=== PATIENT | male | born 1960 | race Caucasian/White ===

== ENCOUNTER 2016-06-26 06:30 | Day surgery (SDC) | payer OTHER ==
--- NOTE | 2016-06-25 11:41 | HP ---
DATE OF CLINIC: 06/11/2016 GRAHAM BENNETT : 1960 PLANNED PROCEDURE: Right Shoulder Arthroscopic Biceps Tenodesis DATE OF SURGERY: June 26, 2016 SURGEON: Toni Barnett M.D. HISTORY OF PRESENT ILLNESS Graham Bennett is a 55 year old male. * Medication list reviewed with patient allergy list reviewed with patient. 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 He had a pop in his right shoulder and had immediate pain. He worked a couple of more days trying to just shake it off and eventually went to [facility] where he was diagnosed with a shoulder strain and sent to [facility] follow up with Jessika Reyez. He has been treated with Flexeril, ibuprofen and some hydrocodone and was sent for an MRI because of concern given a remote history of a previous dislocation of the right shoulder or a subluxation maybe of the right shoulder. He got the MRI based on those results and his ongoing pain was referred here for evaluation. He has not been working since his injury. After discussion and review of treatment options, both operative and non-operative, he has elected to proceed with surgery and presents today preoperatively. PAST MEDICAL AND SURGICAL HISTORY: His past medical history is significant for a hernia surgery in 2002 otherwise negative. He works as a oil painter. He is a non-smoker. He does not have any other complaints at this point. CURRENT MEDICATION * Cyclobenzaprine HCl 10 MG Tablet three times a day 1 tab TID PRN-back spasm Side effects may cause drowsiness do not operate equipment or drive, 5 days, 0 refills * Ibuprofen 800 MG Tablet three times a day, 30 days, 0 refills PAST MEDICAL/SURGICAL HISTORY Reported: No recent change in medical history. Surgical / Procedural: Hernia repair. Medications: Taking OTC pain medication and medication which seems to be helping. SOCIAL HISTORY Social history unchanged. Behavioral: Tobacco use occasionally and non-smoker quit smoking. Smoking status: Former smoker. Alcohol: Alcohol occasionally. 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 ALLERGIES * No Known Allergies FAMILY HISTORY Family history unchanged REVIEW OF SYSTEMS No recent constitutional symptoms to include fevers and chills. No recent cardiovascular symptoms to include chest pain or palpitations. No recent respiratory symptoms to include shortness of breath or recent infections. PHYSICAL FINDINGS * Vitals taken 06/11/2016 09:33 am BP-Sitting R 135/83 mmHg BP Cuff Size Regular Pulse Rate-Sitting 86 bpm Pulse Rhythm Regular Temp-Oral 97.9 F Height 70 in Weight 187 lbs Body Mass Index 26.8 kg/m2 Body Surface Area 2.03 m2 Pain Level 5 Ears, Nose, Throat: * ENT: normal. Lungs: * Clear to auscultation. Cardiovascular: Heart Rate and Rhythm: * Normal. Abdomen: * Normal. Neurological: Motor: * Dominant Hand = Right Hand. Patient is a well-developed, well-nourished male in no acute distress. They are awake, alert and conversant throughout the encounter. CARDIOVASCULAR: Intact peripheral pulses on bilateral upper extremities. No significant edema on inspection of bilateral upper extremities. NEUROLOGIC: Patient had intact coordinated composite motion of the bilateral upper extremities and sensation intact to light touch in all distributions of bilateral upper extremities. PSYCHIATRIC: Patient was oriented to person, place and time and displayed appropriate mood and affect during the encounter. SKIN: Exam of the skin on bilateral upper extremities showed no significant scars, lesions, rashes or masses. FOCUSED MUSCULOSKELETAL EXAM: Normal resting station of bilateral shoulders, elbows and wrists. His right shoulder shows no significant erythema, ecchymosis or swelling. He has tenderness primarily over the bicipital groove. He has a positive Branch's, mildly positive impingement test, positive biceps signs. The shoulder is stable on apprehension testing and load shift testing. He has a negative jerk test and a negative sulcus sign. He has range of motion with abduction to 150 degrees, forward flexion to 140 degrees, external rotation 30 degrees at the side, 70 degrees in the ABER position. He can internally rotate to L4. He is able to perform a lift off test. He has 5/5 strength in external rotation at 0, 45 and 90 degrees of abduction. He has a warm and well perfused arm with intact sensation throughout. IMAGING A review of x-rays shows no fractures or dislocations. He has a type 1 acromion. He has a bit of a spur under the distal portion of his clavicle. The shoulder appears reduced. There are no fractures. He has a laterally projecting coracoid. MRI demonstrates a superior labral tear with some signal change in the biceps tendon as well. He also has some small cystic change in his anterior inferior labrum. It is likely the location of his previous remote history of dislocation. ASSESSMENT A 55-year-old right-hand dominant gentleman with right shoulder pain and injury consistent with a superior labral tear, as demonstrated on his MRI. THERAPY * Patient not eligible for fall risk assessment. PLAN * Superior glenoid labrum lesion of right shoulder, subs Percocet 5-325 MG TABS, 1 every 4 - 6 hours as needed, 14 days, 0 refills * Arthroscopy of the shoulder with biceps tenodesis -right SURGICAL CONSENT We have discussed surgical options including right shoulder arthroscopic biceps tenodesis and non-operative management. The patient was counseled in detail regarding the diagnosis, treatment options available, prognosis of each treatment option and the potential risks and complications. The risks of surgery include, but are not limited to, anesthetic , neurovascular complications, pulmonary embolism, deep vein thrombosis, wound dehiscence, failure of any or all of the discussed procedures, infection of the joint or surrounding soft tissue, need for revision surgery, chronic pain, limitations in activities of daily living, inability to return to work, and loss of normal range of motion or functional use of the extremity. There is the possibility of failure over time that may require additional operative or non-operative treatment. The patient acknowledged that there are a number of perioperative risks not mentioned here and would still like to proceed. The patient is aware of and understands these risks, and wishes to proceed with the proposed surgical procedure and other procedures as indicated at the time of surgery. We will have the patient see their PCP for a preoperative medical risk assessment. The preoperative instructions were reviewed with the patient and all questions were answered. PB/sg
[~2016-06-26 06:30] MED LIST: IV START KIT ONE; LACTATED RINGERS 1,000 ML ONE
[2016-06-26] MEDS ORDERED: CEFAZOLIN SODIUM 2 GRAM PREMIX 100 ML IV PRN (06:45)
[2016-06-26] MEDS ORDERED: FENTANYL 100 MCG/2 ML VIAL ONE ×2 (09:40→12:09)
[2016-06-26] MEDS ORDERED: MIDAZOLAM HCL 5 MG/5 ML VIAL ONE (09:40)
[2016-06-26] MEDS ORDERED: ROPIVACAINE 0.5% 30 ML VIAL ONE (09:46)
[2016-06-26] MEDS ORDERED: NERVE BLOCK PROCEDURAL TRAY 1 EACH ONE (09:46)
[2016-06-26] MEDS ORDERED: LACTATED RINGERS 1,000 ML ONE (09:57)
[2016-06-26] MEDS ORDERED: BUPIVACAINE 0.5% (PRES FREE) 30 ML VIAL ONE (10:01)
[2016-06-26] MEDS ORDERED: SODIUM CHLORIDE 0.9% 50 ML ONE (10:09)
[2016-06-26] MEDS ORDERED: ONDANSETRON 4 MG/2ML 2 ML VIAL IV PRN ×2 (10:38→13:15)
[2016-06-26] MEDS ORDERED: MEPERIDINE 25 MG/ML SYRINGE IV PRN (10:38)
[2016-06-26] MEDS ORDERED: PROMETHAZINE HCL 25 MG/ML VIAL IM PRN (10:38)
[2016-06-26] MEDS ORDERED: ATROPINE SULFATE 0.4 MG/1 ML VIAL IV PRN (10:38)
[2016-06-26] MEDS ORDERED: NALOXONE HCL 0.4 MG/ML VIAL IV PRN (10:38)
[2016-06-26] MEDS ORDERED: LABETALOL HCL 5 MG/ML 20ML VIAL IV PRN (10:38)
[2016-06-26] MEDS ORDERED: HYDRALAZINE HCL 20 MG/1 ML VIAL IV PRN (10:38)
[2016-06-26] MEDS ORDERED: FENTANYL 100 MCG/2 ML VIAL IV PRN (10:38)
[2016-06-26] MEDS ORDERED: ON-Q PUMP/ROPIVACAINE 0.2% 450 ML in PREMIX BAG 1 EACH NB PRN (10:38)
[2016-06-26] MEDS ORDERED: HYDROMORPHONE HCL 1 MG/ML SYRINGE IV PRN ×2 (10:38→13:15)
[2016-06-26] MEDS ORDERED: ON-Q PUMP/ROPIVACAINE 0.2% 450 ML ONE (10:40)
[2016-06-26] MEDS ORDERED: LACTATED RINGERS 1,000 ML IV SCH ×2 (10:45→13:15)
[2016-06-26] MEDS ORDERED: ROCURONIUM BROMIDE 10 MG/ML DOSE IV ONE (11:04)
[2016-06-26] MEDS ORDERED: DEXAMETHASONE SOD PHOS 4 MG/1 ML VIAL ONE (11:04)
[2016-06-26] MEDS ORDERED: LIDOCAINE 2% (PRES FREE) 5 ML VIAL ONE (11:04)
[2016-06-26] MEDS ORDERED: PROPOFOL 20 ML IV ONE (11:04)
[2016-06-26] MEDS ORDERED: GLYCOPYRROLATE 0.2 MG/ML 1ML VIAL ONE (12:11)
[2016-06-26] MEDS ORDERED: NEOSTIGMINE METHYLSULFATE 1 MG/ML DOSE ONE (12:11)
[2016-06-26] MEDS ORDERED: DIPHENHYDRAMINE HCL 50 MG/1 ML VIAL IV PRN (13:15)
[2016-06-26] MEDS ORDERED: OXYCODONE/ACETAMINOPHEN 5/325 MG TABLET PO PRN (13:15)
[2016-06-26] MEDS ORDERED: KETOROLAC TROMETHAMINE 30 MG/ML 1 ML VIAL IV PRN (13:15)
--- NOTE | 2016-06-26 13:23 | RAD ---
Clinical Indication: Arthroscopy with biceps tenodesis. Comparison: MRI 05/13/2016. Findings: 1 views of the right shoulder. Bones: No fracture or dislocation. Hardware from biceps tenodesis is present. Joints: Unremarkable. Soft tissue: Normal. Limited evaluation of the right hemithorax: Unremarkable. Impression: Satisfactory postoperative exam.
--- NOTE | 2016-06-27 14:20 | OP ---
Graham MALLOY : 1960 [id number] DATE OF SERVICE: June 26, 2016 PREOPERATIVE DIAGNOSES: Right shoulder pain with possible labral tear and biceps tendinitis. POSTOPERATIVE DIAGNOSES: Right shoulder impingement with long head biceps tendinitis. PROCEDURE PERFORMED: RIGHT SHOULDER ARTHROSCOPY WITH SUBACROMIAL DECOMPRESSION AND ACROMIOPLASTY AND THE TENODESIS OF THE LONG HEAD OF THE BICEPS. SURGEON: Toni Barnett M.D. PATHOLOGY LABORATORY TECHNOLOGIST: Jason Huerta P.A.-C. ANESTHESIA: Sai Gutierrez.N.Marlyn. SPECIMENS: No material was sent to the laboratory. ESTIMATED BLOOD LOSS: 50 mL FLUIDS REPLACED: 1,000 mL of crystalloid. URINE OUTPUT: None. TOURNIQUET TIME: None. SPECIMENS: No specimens. IMPLANTS: A proximal biceps tenodesis button for the subpectoral biceps tenodesis. INDICATIONS: This is a 56-year-old male with a right shoulder pain and exam findings consistent with biceps tendinitis and possible impingement versus superior labral tear. He has undergone a course of nonoperative measures without adequate relief of his symptoms and he desires definitive management in the form of surgical intervention. DESCRIPTION OF PROCEDURE: The patient was identified in the pre-operative holding area where he was marked with an indelible marker by the operating surgeon. He is taken to the operating room where he was placed in a supine position on the operating room table. General anesthesia was induced in perioperative antibiotics were administered. The patient was repositioned into an upright beach chair seated position. He was prepped and draped in the usual sterile fashion for surgery. An operative time out was performed and confirmed by all members of the operative team. A posterior portal was created and the 30 degree viewing arthroscope was inserted into the glenohumeral joint. Optics were directed anteriorly and an anterior portal was localized with a spinal needle and created in a standard fashion. A 7 mm cannula was inserted to allow for instrumentation the glenohumeral joint in the subacromial space. A probe was inserted through the anterior cannula and used in completion of the diagnostic arthroscopy with the following findings: There was a significant injection and partial tearing of the biceps tendon. The rotator cuff appeared to be intact from the articular side. There was a mild chondral changes about the glenohumeral joint but nothing severe. There were no loose bodies. The anterior, superior and posterior labrum all appeared to be intact. At this point the probe was removed and an RF ablator was inserted through the anterior portal and used in completion of an intra-articular biceps tenotomy. The biceps tendon was retracted out of the joint. The camera was redirected into the subacromial space and a lateral portal was created. A combination of a resector shaver and an RF wand were used to complete a subacromial bursectomy. We inspected the articular side of the rotator cuff and there were no significant defects noted. A bur was brought in through the lateral portal and a subacromial decompression with acromioplasty was completed. At this point we removed the camera and instruments from the shoulder and made a longitudinal incision just at the patient's anterior axillary fold and bluntly dissected down to the anterior humerus medial to the biceps. The long head of biceps tendon was fished out through this incision, whipstitched with a FiberLoop from the biceps tenodesis kit and cut off at a length of 2.5 cm above the muscle belly. The position just at the inferior portion of the bicipital groove about 1 cm above the insertion of the pec tendon was localized and exposed with Hohmann retractors. The guide pin was drilled into the humerus unicortically and then the biceps tenodesis button which had been threaded onto the sutures for the biceps tendon was applied into the intramedullary space. The sutures were tensioned down. One limb was passed through the biceps tendon and then it was tied with good apposition of the tendon to the bone. We copiously irrigated the incision, closed the anterior axillary incision with a #2-0 Vicryl under the skin and a running Nylon on the skin. We closed the portal sites with Nylon. We placed a sterile dressing of Xeroform, fluffs, ABDs and Medipore tape and placed the patient to a shoulder immobilizer sling. The drapes were removed. The patient was awakened from his anesthesia and extubated in the operating room. He was transferred from the stretcher and taken postoperatively to the postanesthesia care unit in stable condition. There were no observed intraoperative complications during this procedure. Job [id number] Cc: [facility]
== END 2016-06-26 14:32 | disposition home or self-care (01) ==
LOC: SDC 06:30
PROVIDERS: ATTEND Orthopaedic Surgery
PROC: 0RBJ4ZZ Excision of Right Shoulder Joint, Percutaneous Endoscopic Approach (ICD-10-PCS; principal; 2016-06-26)
PROC: 0LS30ZZ Reposition Right Upper Arm Tendon, Open Approach (ICD-10-PCS; 2016-06-26)
PROC: 0RNJ4ZZ Release Right Shoulder Joint, Percutaneous Endoscopic Approach (ICD-10-PCS; 2016-06-26)
DX: M75.21 Bicipital tendinitis, right shoulder (principal); M75.41 Impingement syndrome of right shoulder; X50.0XXA Overexertion from strenuous movement or load, initial encounter; Y99.0 Civilian activity done for income or pay; Z87.891 Personal history of nicotine dependence; Z79.899 Other long term (current) drug therapy
CPT/HCPCS: 73020; 23430; 29826; 29822; J3010 ×2; J1100; J2795 ×3; J2250; J2405; J7120 ×2; A4306